=== PATIENT | male | born 1950 | race Caucasian/White ===

== ENCOUNTER 2018-09-23 13:49 | Outpatient (CLI) | payer MEDICARE ==
--- NOTE | 2018-09-23 14:11 | RAD ---
THREE VIEWS RIGHT SHOULDER: HISTORY: Fall from roof with right shoulder pain and swelling. FINDINGS: AP internally, externally, and scapular Y views right shoulder obtained. No evidence of right shoulder fractures, subluxations or bony lesions seen. IMPRESSION: Unremarkable 3 views right shoulder. Transcribed Date/Time: 09/23/2018 2:17 PM
== END 2018-09-23 13:50 | disposition home or self-care (01) ==
LOC: SCSRAD 13:49
PROVIDERS: ATTEND Family Medicine
DX: S49.91XA Unspecified injury of right shoulder and upper arm, initial encounter (principal)

== ENCOUNTER 2018-10-27 09:02 | Outpatient (CLI) | payer MEDICARE ==
--- NOTE | 2018-10-27 09:23 | RAD ---
XR Humerus Rt 2 View STANDARD: 10/27/2018 12:00 AM CLINICAL INDICATION: Right arm pain, recent fall COMPARISON: None. FINDINGS: Fracture:No fracture. Arthropathy:Mild arthropathy. Incidental findings:None of significance. IMPRESSION: 1. No acute osseous abnormality.
== END 2018-10-27 09:03 | disposition home or self-care (01) ==
LOC: SCSRAD 09:02
PROVIDERS: ATTEND Nurse Practitioner Family
DX: M79.601 Pain in right arm (principal)

== ENCOUNTER 2019-06-29 05:22 | Outpatient (CLI) | payer MEDICARE ==
[2019-06-29 11:21] LABS: #Eosinphils 0.2 thou/uL (0.0-0.7); #Lymphocytes 1.9 thou/uL (1.20-3.40); #Monocytes 0.6 thou/uL (0.11-0.59); #Neutrophils 4.1 thou/uL (1.40-6.50); %Basophils 0.6 % (0.0-1.0); %Eosinophils 2.9 % (0.0-10.0); %Lymphocytes 27.2 % (21.0-51.0); %Monocytes 9.2 % (0.0-10.0); %Neutrophils 60.2 % (42.0-75.0); Hemoglobin 15.7 g/dL (14.0-18.0); Mean Corpuscular HGB CONC 33.2 g/dL (32.0-36.0); Mean Corpuscular Hemoglobin 30.6 pg (27.0-31.0); Mean Corpuscular Volume 92.3 fL (78.0-98.0); Platelet Count 268 thou/uL (130-400); RBC Distribution Width 11.6 % (11.5-14.5); Red Blood Cell (RBC) Count 5.14 mill/uL (4.70-6.10); White Blood Cell (WBC) Count 6.8 thou/uL (4.8-10.8)
== END 2019-06-29 05:23 | disposition home or self-care (01) ==
LOC: LABBT 05:22
PROVIDERS: ATTEND Surgery
DX: Z01.818 Encounter for other preprocedural examination (principal); M67.432 Ganglion, left wrist
CPT/HCPCS: 85025; 93005; 93010

== ENCOUNTER 2019-07-02 11:51 | Day surgery (SDC) | payer MEDICARE ==
[2019-06-29 10:28] VITALS: BMI 29.9
[2019-07-02] MEDS ORDERED: Bacitracin Zinc Ointment 30 gm TUBE ONE (13:19)
[2019-07-02] MEDS ORDERED: Betamet Acet/Betamet Na Ph 30 MG/5 ML VIAL ONE (13:19)
[2019-07-02] MEDS ORDERED: Bupivacaine PF 0.5% 30 ML VIAL ONE (13:19)
[2019-07-02] MEDS ORDERED: Fentanyl 100 MCG/2 ML VIAL ONE (13:41)
[2019-07-02] MEDS ORDERED: Lidocaine 1% PF 5 ML VIAL ONE (15:02)
[2019-07-02] MEDS ORDERED: Ondansetron PF 4 MG/2 ML Vial ONE (15:02)
[2019-07-02] MEDS ORDERED: Ketorolac Tromethamine 30 MG/ML VIAL ONE (15:02)
[2019-07-02] MEDS ORDERED: PROPOFOL 200 MG/20 ML VIAL ONE (15:02)
--- NOTE | 2019-07-02 15:28 | OP ---
DATE OF PROCEDURE: 07/02/2019 PREOPERATIVE DIAGNOSIS: Ganglion cyst, left wrist. FINDINGS: Ganglion, almost direct ulna, emanating from the distal radioulnar joint and subsheath of the extensor carpi ulnaris. COMPLICATIONS: None. TOURNIQUET TIME: 14 minutes. ESTIMATED BLOOD LOSS: 5 mL. ANESTHESIA: General LMA technique, augmented by 20 mL of 0.5% Marcaine block srikanth-incisional. INDICATIONS: The patient had a large ganglion, almost 3 cm, aspirated in the clinic. It did not completely resolve, but today it appears to be at least 50% less than pre-scheduling. DESCRIPTION OF PROCEDURE: After successful general endotracheal anesthesia, the limb was prepped and draped. Midline incision was outlined over subcutaneous fullness, consistent with the past location of mass. A zigzag incision was entered after exsanguination of the limb and inflation of tourniquet to 250 mmHg pressure. This incision was carried down through skin and subcutaneous tissue, found the dorsal branch and ulnar nerve, protected completely. We then saw approximately 1.5 cm ganglion with stalk emanating from underneath the distal radioulnar joint ligament and sheath, almost direct midline. We carried it down to the joint surface, excised the 1.5 mm area, and removed the remnant of the ganglion. We then repaired the hole we made in the sheath, this was done with 2-0 Vicryl interrupted simple pattern. We then deflated the tourniquet, obtained hemostasis, and closed the incision, just put the dermis and epidermis together using an interrupted 4-0 nylon in alternating simple and mattress pattern. The patient left the operating room with a splint and no evidence of anesthetic or operative complication. Job ID: [id number]
== END 2019-07-02 16:15 | disposition home or self-care (01) ==
LOC: SDC 11:51
PROVIDERS: ATTEND Orthopaedic Surgery Hand Surgery
PROC: 0LB60ZZ Excision of Left Lower Arm and Wrist Tendon, Open Approach (ICD-10-PCS; principal; 2019-07-02)
DX: M67.432 Ganglion, left wrist (principal); Z88.8 Allergy status to other drugs, medicaments and biological substances; I10 Essential (primary) hypertension; E03.9 Hypothyroidism, unspecified; E11.9 Type 2 diabetes mellitus without complications; E78.00 Pure hypercholesterolemia, unspecified; K21.9 Gastro-esophageal reflux disease without esophagitis; Z79.1 Long term (current) use of non-steroidal anti-inflammatories (NSAID); Z79.82 Long term (current) use of aspirin; Z79.84 Long term (current) use of oral hypoglycemic drugs; Z79.899 Other long term (current) drug therapy
CPT/HCPCS: 88304; J0690; J0702; J1885; J2001; J2405; J2704; J3010; J3490; S0020

== ENCOUNTER 2021-10-12 11:23 | Outpatient (CLI) | payer MEDICARE | END 2021-10-12 11:24 | disposition home or self-care (01) | LOC: SCSRAD 11:23 | PROVIDERS: ATTEND Family Medicine | DX: M79.671 Pain in right foot (principal); M25.774 Osteophyte, right foot ==

== ENCOUNTER 2024-03-16 10:22 | Outpatient (CLI) | payer MEDICARE | END 2024-03-16 10:23 | disposition home or self-care (01) | LOC: SCSRAD 10:22 | PROVIDERS: ATTEND Family Medicine | DX: R05.9 Cough, unspecified (principal); J98.4 Other disorders of lung | CPT/HCPCS: 71046 ==

== ENCOUNTER 2024-03-28 07:57 | Outpatient (CLI) | payer MEDICARE ==
[2024-03-28] MEDS ORDERED: Iopamidol 370 76% 100 ML VIAL ONE (10:19)
== END 2024-03-28 07:58 | disposition home or self-care (01) ==
LOC: BICCT 07:57
PROVIDERS: ATTEND Family Medicine
DX: R05.9 Cough, unspecified (principal); J84.10 Pulmonary fibrosis, unspecified; I25.10 Atherosclerotic heart disease of native coronary artery without angina pectoris; R59.0 Localized enlarged lymph nodes
CPT/HCPCS: 36415; 71260; 82565; Q9967

== ENCOUNTER 2025-01-10 10:06 | Emergency (ER) | payer MEDICARE | END 2025-01-10 12:20 | disposition home or self-care (01) | LOC: ERS 10:06 | DX: S01.112A Laceration without foreign body of left eyelid and periocular area, initial encounter (principal); S60.312A Abrasion of left thumb, initial encounter; E11.9 Type 2 diabetes mellitus without complications; W01.0XXA Fall on same level from slipping, tripping and stumbling without subsequent striking against object, initial encounter; Z79.84 Long term (current) use of oral hypoglycemic drugs ==

== ENCOUNTER 2025-04-22 13:58 | Outpatient (CLI) | payer MEDICARE | END 2025-04-22 13:59 | disposition home or self-care (01) | LOC: BICRAD 13:58 | PROVIDERS: ATTEND Nurse Practitioner Family | DX: M25.511 Pain in right shoulder (principal) ==